=== PATIENT | male | born 1965 | race Caucasian/White ===

== ENCOUNTER 2018-07-13 14:19 | Emergency (ER) | payer SELFPAY ==
[~2018-07-13] VITALS: Ht 165.1 cm; Wt 58.6 kg
[2018-07-13 14:44] VITALS: Ht 165.1 cm; Wt 58.6 kg
[2018-07-14] MEDS ORDERED: AMLO2.5T78 PO (01:18)
--- NOTE | 2018-07-14 01:49 | ERD ---
ER Documentation Chief Complaint Chief Complaint blood pressure high sent from clinic HPI This is a 53-year-old with elevated blood pressure sent from the clinic. Denies chest pain fevers chills nausea vomiting or headache. Denies focal neurological complaints. Denies any other current issues. Patient has had elevated blood pressure. ROS All systems reviewed and are negative except as per history of present illness. Medications Home Meds Active Scripts Amlodipine Besylate* (Amlodipine Besylate*) 2.5 Mg Tablet, 2.5 MG PO DAILY, #30 TAB Prov:LESLY MCQUEEN 07/14/18 Allergies Allergies: Coded Allergies: No Known Allergy (Unverified , 07/13/18) PMhx/Soc Medical and Surgical Hx: pt denies Medical Hx, pt denies Surgical Hx Hx Alcohol Use: Yes Hx Substance Use: No Hx Tobacco Use: No Smoking Status: Unknown if ever smoked Physical Exam Vitals Vital Signs Date Temp Pulse Resp B/P (MAP) Pulse Ox O2 O2 Flow FiO2 Time Delivery Rate 07/14/18 80 18 177/80 100 Room Air 00:50 (112) 07/13/18 72 177/81 23:30 (113) 07/13/18 77 18 205/72 97 Room Air 22:05 (116) 07/13/18 98.2 82 18 209/98 99 14:44 (135) Physical Exam Const: No acute distress Head: Atraumatic Eyes: Normal Conjunctiva ENT: Normal External Ears, Nose and Mouth. Neck: Full range of motion. No meningismus. Resp: Clear to auscultation bilaterally Cardio: Regular rate and rhythm, no murmurs Abd: Soft, non tender, non distended. Normal bowel sounds Skin: No petechiae or rashes Back: No midline or flank tenderness Ext: No cyanosis, or edema Neur: Awake and alert Psych: Normal Mood and Affect Result Diagram: 07/13/18219907/13/182199 Results 24 hrs Laboratory Tests Test 07/13/18 22:00 07/13/18 22:20 White Blood Count 8.3 10^3/ul Red Blood Count 4.07 10^6/ul Hemoglobin 8.3 g/dl Hematocrit 28.5 % Mean Corpuscular Volume 70.0 fl Mean Corpuscular Hemoglobin 20.4 pg Mean Corpuscular Hemoglobin Concent 29.1 g/dl Red Cell Distribution Width 16.0 % Platelet Count 358 10^3/UL Mean Platelet Volume 9.3 fl Immature Granulocytes % 0.400 % Neutrophils % 65.4 % Lymphocytes % 21.4 % Monocytes % 10.0 % Eosinophils % 2.0 % Basophils % 0.8 % Nucleated Red Blood Cells % 0.0 /100WBC Immature Granulocytes # 0.030 10^3/ul Neutrophils # 5.4 10^3/ul Lymphocytes # 1.8 10^3/ul Monocytes # 0.8 10^3/ul Eosinophils # 0.2 10^3/ul Basophils # 0.1 10^3/ul Nucleated Red Blood Cells # 0.0 10^3/ul Sodium Level 140 mmol/L Potassium Level 3.8 mmol/L Chloride Level 104 mmol/L Carbon Dioxide Level 26 mmol/L Anion Gap 10 Blood Urea Nitrogen 20 mg/dl Creatinine 0.72 mg/dl Est Glomerular Filtrat Rate mL/min > 60 mL/min Glucose Level 204 mg/dl Calcium Level 9.0 mg/dl Total Bilirubin 0.2 mg/dl Direct Bilirubin 0.00 mg/dl Indirect Bilirubin 0.2 mg/dl Aspartate Amino Transf (AST/SGOT) 22 IU/L Alanine Aminotransferase (ALT/SGPT) 16 IU/L Alkaline Phosphatase 115 IU/L Troponin I 0.034 ng/ml B-Type Natriuretic Peptide 236 PG/ML Total Protein 6.9 g/dl Albumin 3.6 g/dl Globulin 3.30 g/dl Albumin/Globulin Ratio 1.09 Urine Color YELLOW Urine Clarity CLEAR Urine pH 5.0 Urine Specific [place] 1.020 Urine Ketones TRACE mg/dL Urine Nitrite NEGATIVE mg/dL Urine Bilirubin NEGATIVE mg/dL Urine Urobilinogen NEGATIVE mg/dL Urine Leukocyte Esterase NEGATIVE Thalia/ul Urine Microscopic RBC 13 /HPF Urine Microscopic WBC 2 /HPF Urine Bacteria FEW /HPF Urine Hemoglobin 1+ mg/dL Urine Glucose 3+ mg/dL Urine Total Protein 3+ mg/dl Procedures/MDM Emergency department course: Patient seen and evaluated by triage nurse. Placed in bed from the evaluation. Had blood work done. A stat EKG and a stat chest x-ray. Placed on continuous youth care professional with continuous pulse oximetry Diagnostic data: EKG: Rate/Rhythm: [Normal Sinus Rhythm] QRS, ST, T-waves: [No changes consistent w/ acute ischemia] Impression: [No evidence of ischemia or arrhythmia] Chest X-ray 1V Interpreted by me: Soft Tissue: No acute abnormalities Bones: No acute abnormalities Mediastinum/Cardiac Silhouette/Lungs: [No acute abnormalities] Medical decision making: Patient's blood pressure was elevated (>120/80) but appears stable without evidence of hypertension emergency or urgency. The patient was counseled about the risks of hypertension and urged to pursue out patient monitoring and therapy within a week with their primary care physician. Departure Diagnosis: Primary Impression: Hypertension Hypertension type: unspecified Qualified Codes: I10 - Essential (primary) hypertension Condition: Stable Patient Instructions: High Blood Pressure (Hypertension) LESLY MCQUEEN Jul 14, 2018 01:29
[2018-07-14 02:01] VITALS: BP 157/86; PULSE 77; RESP 14
== END 2018-07-14 02:03 | disposition home or self-care (01) ==
LOC: E/R 14:19
DX: I10 Essential (primary) hypertension (principal); R42 Dizziness and giddiness
CPT/HCPCS: 36415; 70450; 71045; 80053; 81001; 83880; 84484; 85025; 93005